=== PATIENT | female | born 2000 | race Hispanic/Latino ===

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

== ENCOUNTER 2019-01-05 22:15 | Emergency (ER) | payer MEDICAID | END 2019-01-05 23:07 | disposition home or self-care (01) | LOC: EDH 22:15 | DX: J20.9 Acute bronchitis, unspecified (principal); F31.9 Bipolar disorder, unspecified; F20.9 Schizophrenia, unspecified; Z88.2 Allergy status to sulfonamides ==

== ENCOUNTER 2019-01-12 16:48 | Emergency (ER) | payer MEDICAID ==
[2019-01-12] MEDS ORDERED: HYOSCYAMINE SULFATE 0.125 MG TAB.SUBL SL ONE (17:04)
[2019-01-12] MEDS ORDERED: SIMETHICONE 80 MG TAB.CHEW ONE (17:04)
[2019-01-12] MEDS ORDERED: ONDANSETRON ODT 4 MG TAB ONE (17:05)
[2019-01-12 18:22] LABS: APPEARANCE,URINE Cloudy (CLEAR); BILIRUBIN,URINE Negative (NEGATIVE); COLOR,URINE Dark Yellow (YELLOW); GLUCOSE, URINE (UA) Negative (NEGATIVE); KETONES,URINE >=160 mg/dL (NEGATIVE); LEUKOCYTE ESTERASE ,URINE Small (NEGATIVE); NITRATE,URINE Negative (NEGATIVE); OCCULT BLOOD,URINE Trace (NEGATIVE); PROTEIN,URINE POS 1+ mg/dL (NEGATIVE)
[2019-01-12 18:30] LABS: AMPHET/METH SCREEN,URINE NEGATIVE (NEGATIVE); BARBITURATE SCREEN, URINE NEGATIVE (NEGATIVE); BENZODIAZEPINES SCREEN,URINE NEGATIVE (NEGATIVE); CANNABINOID SCREEN,URINE POSITIVE (NEGATIVE); COCAINE SCREEN,URINE NEGATIVE (NEGATIVE); OPIATE SCREEN,URINE NEGATIVE (NEGATIVE); PHENCYCLIDINE SCREEN,URINE NEGATIVE (NEGATIVE)
[2019-01-12 18:47] LABS: BACTERIA,URINE Few /HPF (None Seen); RBC,URINE 0-1 /HPF (0-1); SQUAMOUS EPITHELIAL CELL,UR Moderate /HPF (0-2)
[2019-01-12 18:48] LABS: MUCUS,URINE Moderate LPF (None Seen)
== END 2019-01-12 19:00 | disposition home or self-care (01) ==
LOC: EDH 16:48
DX: O21.0 Mild hyperemesis gravidarum (principal); F41.9 Anxiety disorder, unspecified; F31.9 Bipolar disorder, unspecified; F20.9 Schizophrenia, unspecified; Z87.891 Personal history of nicotine dependence; Z3A.01 Less than 8 weeks gestation of pregnancy; Z88.2 Allergy status to sulfonamides
CPT/HCPCS: 80305; 81001

== ENCOUNTER 2020-07-06 01:50 | Observation (INO) | payer MEDICAID ==
[~2020-07-06] VITALS: Ht 149.9 cm; Wt 48.5 kg
[2020-07-06 02:48] LABS: APPEARANCE,URINE Cloudy (CLEAR); BILIRUBIN,URINE Negative (NEGATIVE); COLOR,URINE Dark Yellow (YELLOW); GLUCOSE, URINE (UA) TRACE mg/dL (NEGATIVE); KETONES,URINE >=160 mg/dL (NEGATIVE); LEUKOCYTE ESTERASE ,URINE Moderate (NEGATIVE); NITRATE,URINE Negative (NEGATIVE); OCCULT BLOOD,URINE Negative (NEGATIVE); PH,URINE 6.5 (5.0-8.0); PROTEIN,URINE Trace mg/dL (NEGATIVE)
[2020-07-06 02:56] LABS: AMPHET/METH SCREEN,URINE NEGATIVE (NEGATIVE); BARBITURATE SCREEN, URINE NEGATIVE (NEGATIVE); BENZODIAZEPINES SCREEN,URINE POSITIVE (NEGATIVE); CANNABINOID SCREEN,URINE POSITIVE (NEGATIVE); COCAINE SCREEN,URINE NEGATIVE (NEGATIVE); OPIATE SCREEN,URINE NEGATIVE (NEGATIVE); PHENCYCLIDINE SCREEN,URINE NEGATIVE (NEGATIVE)
[2020-07-06 03:17] LABS: BACTERIA,URINE Moderate /HPF (None Seen); RBC,URINE None Seen /HPF (0-1); SQUAMOUS EPITHELIAL CELL,UR Moderate /HPF (0-2)
[2020-07-06] MEDS ORDERED: ONDANSETRON HCL 4 MG/2 ML VIAL IVP PRN (04:00)
[2020-07-06] MEDS: LACTATED RINGERS 1000ML 1,000 ML IV PRN ×3 (04:56→20:25)
[2020-07-06] MEDS ORDERED: DIPHENOXYLATE HCL/ATROPINE 2.5/0.025 MG TAB PO SCH (07:45)
[2020-07-06] MEDS: ACETAMINOPHEN 325 MG TAB PO PRN (08:05)
[2020-07-06] MEDS: METRONIDAZOLE 250MG/50ML 50 ML IV SCH ×3 (09:29→22:22)
[2020-07-06] MEDS: ONDANSETRON HCL 4 MG/2 ML VIAL IVP PRN ×2 (11:08→15:18)
[2020-07-06 11:28] VITALS: BP 120/66
[2020-07-06] MEDS ORDERED: ONDA4TAB4 PO (13:06)
[2020-07-06] MEDS: DIPHENOXYLATE HCL/ATROPINE 2.5/0.025 MG TAB PO PRN (14:20)
[2020-07-06 15:30] VITALS: BP 113/70
[2020-07-06 20:42] VITALS: BP 113/56
[2020-07-06 23:14] VITALS: BP 120/65
[2020-07-07] MEDS: ONDANSETRON HCL 4 MG/2 ML VIAL IVP PRN ×3 (00:02→13:59)
[2020-07-07 03:00] VITALS: BP 112/55
[2020-07-07] MEDS: LACTATED RINGERS 1000ML 1,000 ML IV PRN (04:13)
[2020-07-07] MEDS: METRONIDAZOLE 250MG/50ML 50 ML IV SCH ×3 (06:02→22:00)
[2020-07-07 07:05] VITALS: BP 103/58
[2020-07-07 07:18] LABS: HEMATOCRIT 26.8 % (36-48); MEAN CORPUSCULAR HEMOGLOBIN 31.5 pg (27.0-33.0); MEAN CORPUSCULAR HGB CONC 33.6 g/dL (32.0-36.0); MEAN CORPUSCULAR VOLUME 93.7 fL (80-100); RED BLOOD CELL COUNT(AUTO) 2.86 MIL/uL (4.00-5.50); RED CELL DISTRIBUTION WIDTH 12.4 % (11.0-15.5); WHITE BLOOD COUNT (AUTO) 7.2 K/uL (4.8-10.8)
[2020-07-07 07:34] LABS: CREATININE 0.5 mg/dL (0.5-1.5); POTASSIUM 3.4 mmol/L (3.5-5.1)
[2020-07-07] MEDS: DIPHENOXYLATE HCL/ATROPINE 2.5/0.025 MG TAB PO PRN ×2 (08:37→13:59)
[2020-07-07] MEDS ORDERED: LACTATED RINGERS 1000ML 1,000 ML IV SCH (09:45)
[2020-07-07 11:16] VITALS: BP 111/61
[2020-07-07] MEDS: POTASSIUM CHLORIDE 20 MEQ in LACTATED RINGERS 1000ML 1,000 ML IV SCH ×2 (13:24→21:59)
[2020-07-07] MEDS: ACETAMINOPHEN 325 MG TAB PO PRN ×2 (13:32→23:34)
[2020-07-07 17:00] VITALS: BP 114/63
[2020-07-07 18:38] VITALS: BP 118/72
[2020-07-07 23:23] VITALS: BP 92/54
[2020-07-08 04:07] VITALS: BP 101/60
[2020-07-08] MEDS: METRONIDAZOLE 250MG/50ML 50 ML IV SCH ×2 (05:56→14:20)
[2020-07-08] MEDS: POTASSIUM CHLORIDE 20 MEQ in LACTATED RINGERS 1000ML 1,000 ML IV SCH (06:02)
[2020-07-08 07:16] VITALS: BP 101/54
[2020-07-08] MEDS: ONDANSETRON HCL 4 MG/2 ML VIAL IVP PRN (10:47)
[2020-07-08] MEDS: DIPHENOXYLATE HCL/ATROPINE 2.5/0.025 MG TAB PO PRN (10:47)
[2020-07-08 11:00] VITALS: BP 105/63
[2020-07-08] MEDS ORDERED: METR500T PO (15:20)
[2020-07-08 16:00] VITALS: BP 116/71
== END 2020-07-08 18:20 | disposition home or self-care (01) ==
LOC: EDH 01:50 → LDH 01:51 → WSH 11:28
PROVIDERS: ADMIT Obstetrics & Gynecology; ATTEND Obstetrics & Gynecology
DX: O99.612 Diseases of the digestive system complicating pregnancy, second trimester (principal); K52.9 Noninfective gastroenteritis and colitis, unspecified; Z3A.23 23 weeks gestation of pregnancy; Z88.2 Allergy status to sulfonamides
CPT/HCPCS: 36415; 59025; 76705; 80048; 80305; 81001; 85027; 87088; 96361 ×3; 96365; 96366 ×3; 96375; 96376 ×3; 99284; G0378 ×63; J2405 ×7; J3480 ×2; J3490 ×6; J7120 ×5; 96360